=== PATIENT | female | born 2000 | race African-American/Black ===

== ENCOUNTER 2023-01-26 00:11 | Emergency (ER) | payer OTHER, BC ==
[~2023-01-26] VITALS: Ht 175.3 cm; Wt 51.3 kg
[~2023-01-26 00:11] MED LIST: CIPRO500 MG PO; ONDANSETRON ODT4 MG PO; PROTONIX20 MG PO
[2023-01-26 00:25] VITALS: O2SAT 100
[2023-01-26] MEDS ORDERED: IBUPROFEN 400 MG TAB PO STA (00:29)
== END 2023-01-26 01:40 | disposition home or self-care (01) ==
LOC: ER 00:23
DX: S93.491A Sprain of other ligament of right ankle, initial encounter (principal); X50.1XXA Overexertion from prolonged static or awkward postures, initial encounter; Y93.01 Activity, walking, marching and hiking; Y92.89 Other specified places as the place of occurrence of the external cause
CPT/HCPCS: 99283